=== PATIENT | female | born 1955 | race Caucasian/White ===

== ENCOUNTER 2016-03-30 10:00 | Day surgery (SDC) | payer OTHER ==
[~2016-03-30 10:00] MED LIST: FISH OIL TRIP1400 MG PO; HYDROCHLOROTHIA25 MG PO; JANUMET1 TA1 PO; LANTUS SOL100 UNITS/ SC; LOSARTAN POTASS50 MG PO; MULTIVITAMIN1 TAB PO
--- NOTE | 2016-03-30 12:32 | Provider's Discharge Care Plan ---
Problem, Goal, Plan Problem List 1. S/P colonoscopy Goals: Screening Instructions: Follow up as needed, Take meds as directed, high fiber diet
--- NOTE | 2016-03-30 12:32 | Provider's Discharge Care Plan ---
Problem, Goal, Plan Problem List 1. S/P colonoscopy Goals: Screening Instructions: Follow up as needed, Take meds as directed, high fiber diet
--- NOTE | 2016-03-30 13:35 | OPERATIVE REPORT ---
DATE OF SURGERY: 03/30/2016 SURGEON: Josias Gaines III, MD CHIEF PRIVACY OFFICER: None. PREOPERATIVE DIAGNOSIS: 1. Screening colonoscopy POSTOPERATIVE DIAGNOSIS: 1. Sigmoid polyp PROCEDURE PERFORMED: 1. Colonoscopy with electrocautery snare polypectomy ANESTHESIA: TIVA. INDICATIONS: The patient is a 60-year-old female whose last colonoscopy was approximately 11 years ago. She is now scheduled for screening. She is asymptomatic. SURGICAL FINDINGS: Normal-appearing cecum, ascending, transverse, and descending colon. Sigmoid had a small, less than 1 cm sessile polyp that was sessile. The rectal vault appeared grossly normal. SURGICAL TECHNIQUE: The patient was brought to the operating room and placed in the left lateral decubitus position, where she was administered TIVA and monitored closely by anesthesia. After proper anesthesia had taken effect, a digital rectal examination revealed no masses or stenosis. This was followed by the passage of a fiberoptic video flexible Olympus colonoscope which, without difficulty, negotiated to the cecum. The cecum was identified by anatomical landmarks and anterior abdominal wall ballottement. On withdrawing the scope, the aforementioned findings noted. The scope was withdrawn. The polyp in question was identified, removed and retrieved using electrocautery snare. The scope was withdrawn into the rectal vault, retroflexed, good view of the rectal vault obtained. No other pathology identified. The scope was completely withdrawn. The patient tolerated the procedure well and was transferred to the recovery room in stable condition. There were no intraoperative or anesthetic complications.
== END 2016-03-30 14:38 | disposition home or self-care (01) ==
LOC: OR SRH 10:00 → SCU SRH 10:04
PROVIDERS: Specialist
PROC: 0DBN8ZX Excision of Sigmoid Colon, Via Natural or Artificial Opening Endoscopic, Diagnostic (ICD-10-PCS; principal; 2016-03-30 11:15)
DX: Z12.11 Encounter for screening for malignant neoplasm of colon (principal); D12.5 Benign neoplasm of sigmoid colon; E11.9 Type 2 diabetes mellitus without complications; Z79.4 Long term (current) use of insulin; I10 Essential (primary) hypertension
CPT/HCPCS: 29229; 29240; 50004; 60001; 82900; 83526

== ENCOUNTER 2016-05-12 15:41 | Outpatient (CLI) | payer OTHER ==
--- NOTE | 2016-05-18 11:01 | DIAGNOSTIC IMAGING REPORT ---
PROCEDURE: MG BILATERAL SCREENING W/CAD INDICATION: SCREENING. Mother with a history of breast cancer. TECHNIQUE: Bilateral CC and MLO digital views. COMPARISON: Bilateral mammogram 06/01/2015, left mammogram 03/06/2014 and bilateral mammogram 02/06/2014. FINDINGS: Computer-aided detection applied. Mildly dense. No change. IMPRESSION: 1. Negative mammogram RESULT CODE: 1- Negative. A. A negative report should not delay biopsy if a dominant or clinically suspicious mass is present. 10-15% of cancers are not identified by x-ray. B. A negative report may reinforce clinical impression. C. Adenosis and dense breasts may obscure an underlying neoplasm. D. False positive reports average 6-10%. E.. A yearly screening mammogram is recommended. A reminder letter will be scheduled.
== END 2016-05-12 23:00 | disposition home or self-care (01) ==
LOC: MAM SRH 15:41
DX: Z12.31 Encounter for screening mammogram for malignant neoplasm of breast (principal); Z80.3 Family history of malignant neoplasm of breast